=== PATIENT | female | born 1975 | race Caucasian/White ===

== ENCOUNTER 2017-08-17 08:46 | Day surgery (SDC) | payer OTHER ==
[2017-08-17] MEDS ORDERED: CEFAZOLIN 1 GM INJ (10:10)
[2017-08-17] MEDS ORDERED: PROPOFOL 0 ML (10:10)
[2017-08-17] MEDS ORDERED: METOCLOPRAMIDE 10 MG INJ (10:11)
[2017-08-17] MEDS ORDERED: KETOROLAC 30 MG INJ (10:11)
[2017-08-17] MEDS ORDERED: ONDANSETRON 4 MG INJ (10:11)
[2017-08-17] MEDS ORDERED: FENTAnyl 50 MCG/ML VIAL (10:12)
== END 2017-08-17 10:32 | disposition home or self-care (01) ==
LOC: SDS 08:46
DX: Z30.2 Encounter for sterilization (principal); Z53.9 Procedure and treatment not carried out, unspecified reason

== ENCOUNTER 2018-08-23 11:44 | Emergency (ER) | payer OTHER ==
[2018-08-23 12:59] LABS: ADD MAN DIFF? NO
[2018-08-23 13:04] LABS: BASOPHILS % 0.4 % (0.0-2.0); EOSINOPHILS # 0.1 10^3/ul (0.0-0.5); EOSINOPHILS % 0.9 % (0.0-7.0); HEMATOCRIT 39.2 % (37.0-47.0); HEMOGLOBIN 12.5 g/dl (12.0-16.0); LYMPHOCYTES % 12.5 % (15.0-51.0); MEAN CORPUSCULAR HEMOGLOBIN 26.5 pg (29.0-33.0); MEAN CORPUSCULAR HGB CONC 31.9 g/dl (32.0-37.0); MEAN CORPUSCULAR VOLUME 83.2 fl (82.0-101.0); MEAN PLATELET VOLUME 11.2 fl (7.4-10.4); MONOCYTE # 0.3 10^3/ul (0.3-0.9); MONOCYTES % 4.1 % (0.0-11.0); NEUTROPHIL # 6.3 10^3/ul (1.6-7.5); NEUTROPHILS % 81.6 % (39.0-77.0); PLATELET COUNT 279 10^3/UL (140-415); RED BLOOD COUNT 4.71 10^6/ul (4.20-5.40); RED CELL DISTRIBUTION WIDTH 13.2 % (11.5-14.5)
[2018-08-23 13:04] LABS: WHITE BLOOD COUNT 7.7 10^3/ul (4.8-10.8)
[2018-08-23 13:24] LABS: ALANINE AMINOTRANSFERASE 11 IU/L (13-69); ALBUMIN 4.4 g/dl (3.3-4.9); ALBUMIN/GLOBULIN RATIO 1.15; ALKALINE PHOSPHATASE 47 IU/L (42-121); ANION GAP 10 (5-13); ASPARTATE AMINO TRANSFERASE 18 IU/L (15-46); BILIRUBIN,INDIRECT 0.4 mg/dl (0-1.1); BILIRUBIN,TOTAL 0.4 mg/dl (0.2-1.3); BLOOD UREA NITROGEN 13 mg/dl (7-20); CALCIUM 9.2 mg/dl (8.4-10.2); CARBON DIOXIDE 26 mmol/L (21-31); CHLORIDE 104 mmol/L (97-110); CREATININE 0.46 mg/dl (0.44-1.00); Estimated GFR > 60 mL/min (>60); GLUCOSE 105 mg/dl (70-220); POTASSIUM 4.5 mmol/L (3.5-5.1); SODIUM 140 mmol/L (135-144); TOTAL PROTEIN 8.2 g/dl (6.1-8.1)
[2018-08-23 13:43] LABS: ADD UMIC NO; UR ASCORBIC ACID NEGATIVE (NEGATIVE); UR BACTERIA FEW /HPF (NONE SEEN); UR BILIRUBIN (Dip) NEGATIVE (NEGATIVE); UR BLOOD (Dip) NEGATIVE (NEGATIVE); UR CLARITY SLIGHTLY CLOUDY (CLEAR); UR COLOR YELLOW (YELLOW); UR GLUCOSE (Dip) NEGATIVE (NEGATIVE); UR KETONES (Dip) NEGATIVE (NEGATIVE); UR LEUKOCYTE ESTERASE (Dip) NEGATIVE Leu/ul (NEGATIVE); UR MUCUS FEW /HPF (NONE SEEN); UR NITRITE (Dip) NEGATIVE (NEGATIVE); UR RBC 0 /HPF (0-5); UR SPECIFIC GRAVITY (Dip) 1.027 (1.003-1.030); UR SQUAMOUS EPITHELIAL CELL MODERATE /HPF (FEW); UR TOTAL PROTEIN (Dip) NEGATIVE (NEGATIVE); UR UROBILINOGEN (Dip) NEGATIVE (NEGATIVE); UR WBC 1 /HPF (0-5)
== END 2018-08-23 15:40 | disposition home or self-care (01) ==
LOC: FTE 11:44
DX: R51 Headache (principal); R11.0 Nausea
CPT/HCPCS: 76856; 80053; 81001; 81003; 81025; 85025; 99284-25

== ENCOUNTER 2018-11-08 10:16 | Day surgery (SDC) | payer OTHER ==
[2018-11-08 12:06] LABS: ADD MAN DIFF? NO
[2018-11-08 12:27] LABS: BASOPHILS % 0.7 % (0.0-2.0); EOSINOPHILS # 0.3 10^3/ul (0.0-0.5); EOSINOPHILS % 5.1 % (0.0-7.0); HEMATOCRIT 37.1 % (37.0-47.0); HEMOGLOBIN 11.5 g/dl (12.0-16.0); LYMPHOCYTES # 1.8 10^3/ul (0.8-2.9); LYMPHOCYTES % 30.8 % (15.0-51.0); MEAN CORPUSCULAR HEMOGLOBIN 24.9 pg (29.0-33.0); MEAN CORPUSCULAR VOLUME 80.5 fl (82.0-101.0); MEAN PLATELET VOLUME 11.4 fl (7.4-10.4); MONOCYTE # 0.4 10^3/ul (0.3-0.9); MONOCYTES % 7.2 % (0.0-11.0); NEUTROPHIL # 3.3 10^3/ul (1.6-7.5); NEUTROPHILS % 55.9 % (39.0-77.0); PLATELET COUNT 289 10^3/UL (140-415); RED BLOOD COUNT 4.61 10^6/ul (4.20-5.40); RED CELL DISTRIBUTION WIDTH 14.6 % (11.5-14.5)
[2018-11-08 12:27] LABS: WHITE BLOOD COUNT 5.8 10^3/ul (4.8-10.8)
[2018-11-08] MEDS ORDERED: SUCCINYLCHOLINE CHLORIDE 100 MG/5 ML SYG IV (13:57)
[2018-11-08] MEDS ORDERED: NEOSTIGMINE 3 MG/3 ML SYRINGE ×2 (13:57→14:27)
[2018-11-08] MEDS ORDERED: GLYCOPYRROLATE 0.4 MG INJ ×2 (13:57→14:27)
[2018-11-08] MEDS ORDERED: LIDOCAINE 2% (SDV) 5 ML INJ (13:57)
[2018-11-08] MEDS ORDERED: PROPOFOL 20 ML (13:57)
[2018-11-08] MEDS ORDERED: ROCURONIUM 50 MG INJ (13:57)
[2018-11-08] MEDS ORDERED: MEPERIDINE 100 MG INJ (13:58)
[2018-11-08] MEDS ORDERED: CEFAZOLIN 1 GM INJ (13:59)
[2018-11-08] MEDS ORDERED: METOCLOPRAMIDE 10 MG INJ (14:18)
[2018-11-08] MEDS ORDERED: ONDANSETRON 4 MG INJ (14:18)
[2018-11-08] MEDS ORDERED: HYDROmorphONE 1 MG/5 ML IV SYRINGE IV ×3 (15:30)
[2018-11-08] MEDS ORDERED: EPHEDrine 25 MG/5 ML SYG IV (15:30)
[2018-11-08] MEDS ORDERED: MEPERIDINE 25 MG INJ IV (15:30)
[2018-11-08] MEDS ORDERED: OXYCODONE/ACETAMINOPHEN (5/325) TAB PO ×2 (15:30)
[2018-11-08] MEDS ORDERED: LABETALOL HCL 20MG INJ IV (15:30)
[2018-11-08] MEDS ORDERED: FENTAnyl 50 MCG/ML VIAL IV ×2 (15:30)
[2018-11-08] MEDS ORDERED: hydrALAzine 20 MG INJ IV (15:30)
[2018-11-08] MEDS ORDERED: MIDAZOLAM 1 MG/ML 2 ML INJ IV (15:30)
[2018-11-08] MEDS ORDERED: ONDANSETRON 4 MG INJ IV (15:30)
[2018-11-08] MEDS ORDERED: METOCLOPRAMIDE 10 MG INJ IV (15:30)
[2018-11-08] MEDS ORDERED: DIPHENHYDRAMINE 50 MG INJ IV (15:30)
[2018-11-08] MEDS: FENTAnyl 50 MCG/ML VIAL IV (15:33)
== END 2018-11-08 18:25 | disposition home or self-care (01) ==
LOC: SDS 10:16
DX: Z30.2 Encounter for sterilization (principal)
CPT/HCPCS: 58670; 84702; 85025; 86850; 86900; 86901